=== PATIENT | female | born 1935 | race Caucasian/White ===

== ENCOUNTER 2017-08-29 09:48 | Outpatient (CLI) | payer MEDICARE ==
--- NOTE | 2017-08-29 12:02 | ULT ---
BILATERAL CAROTID DUPLEX ULTRASOUND: DATE: 08/29/17 HISTORY: Bilateral carotid bruits. TECHNIQUE: Chiang scale ultrasound with color flow and spectral Doppler imaging of the extracranial carotid artery systems performed. FINDINGS: There is plaque formation on either side. The peak systolic velocity in the right ICA measures 58 cm/second with an end-diastolic velocity of 1 1 cm/second and a systolic ratio of 0.78. The peak systolic velocity in the left ICA measures 86 cm/second with an end-diastolic velocity of 11 cm/second and a systolic ratio of 1.05. Flow in both vertebral arteries remains antegrade. IMPRESSION: No evidence of hemodynamically significant stenosis. POS: [facility]
== END 2017-08-29 09:49 | disposition home or self-care (01) ==
LOC: ULT 09:48
PROVIDERS: ATTEND General Practice
DX: R09.89 Other specified symptoms and signs involving the circulatory and respiratory systems (principal)
CPT/HCPCS: 93880

== ENCOUNTER 2017-12-30 11:45 | Inpatient (IN) | payer MEDICARE ==
[2017-12-30 12:16] LABS: #Eosinphils 0.1 thou/uL (0.0-0.7); #Lymphocytes 1.1 thou/uL (1.20-3.40); #Monocytes 0.5 thou/uL (0.11-0.59); #Neutrophils 11.5 thou/uL (1.40-6.50); %Basophils 0.2 % (0.0-1.0); %Eosinophils 0.9 % (0.0-10.0); %Lymphocytes 8.6 % (21.0-51.0); %Neutrophils 86.3 % (42.0-75.0); Hemoglobin 14.6 g/dL (12.0-16.0); Mean Corpuscular HGB CONC 33.2 g/dL (32.0-36.0); Mean Corpuscular Hemoglobin 31.6 pg (27.0-31.0); Mean Platelet Volume 8.2 fL (7.4-10.4); Platelet Count 260 thou/uL (130-400); RBC Distribution Width 11.2 % (11.5-14.5); Red Blood Cell (RBC) Count 4.61 mill/uL (4.20-5.40); White Blood Cell (WBC) Count 13.3 thou/uL (4.8-10.8)
[2017-12-30 12:25] LABS: INR-International Normal Ratio 1.1
[2017-12-30 12:35] LABS: ALT (SGPT) 23 U/L (8-55); AST (SGOT) 26 U/L (5-34); Albumin 3.9 g/dL (3.4-4.8); Alkaline Phosphatase 76 U/L (40-150); Anion Gap 12 mmol/L (10-20); BUN (Urea Nitrogen) 27 mg/dL (9.8-20.1); Bilirubin, Total 0.8 mg/dL (0.2-1.2); Calc. Creatinine Clearance 0 mL/min (70-130); Calcium 9.6 mg/dL (7.8-10.44); Carbon Dioxide 26 mmol/L (23-31); Chloride 105 mmol/L (98-107); Estimated GFR-MDRD 44; Glucose 191 mg/dL (83-110); Potassium 4.4 mmol/L (3.5-5.1); Protein, Total 6.9 g/dL (6.0-8.3); Sodium 139 mmol/L (136-145)
--- NOTE | 2017-12-30 13:07 | RAD ---
RIGHT HIP 2 VIEWS: Date: 12/30/17 PROVIDED CLINICAL HISTORY: Pain. FINDINGS: Comminuted intertrochanteric right proximal femoral fracture with coxa vara. Nondisplaced superior pu bic ramus fracture. Vascular calcification. Right hip joint space is preserved. IMPRESSION: Displaced and angulated intertrochanteric right proximal femoral fracture. Nondisplaced superior pubi c ramus fracture. POS: [facility]
--- NOTE | 2017-12-30 13:08 | RAD ---
PELVIC RADIOGRAPH: Date: 12/30/17 PROVIDED CLINICAL HISTORY: Pain. FINDINGS: Comminuted, displaced intertrochanteric right proximal femoral fracture with accentuation of coxa jose a. There is also a nondisplaced fracture involving the right superior pubic ramus. No additional frac ture is evident. Alignment appears otherwise anatomic. IMPRESSION: Right proximal femoral and superior pubic ramus fractures as above. POS: [facility]
--- NOTE | 2017-12-30 13:19 | RAD ---
PORTABLE CHEST: Date: 12/30/17 PROVIDED CLINICAL HISTORY: Pain. FINDINGS: Cardiac and mediastinal silhouette is within normal limits. Vascular calcification involves the aorti c arch. No focal consolidation, pleural fluid, or pneumothorax apparent. IMPRESSION: No evidence for an acute cardiopulmonary process. POS: [facility]
--- NOTE | 2017-12-30 14:21 | HP ---
DATE OF ADMISSION: 12/30/2017 REQUESTING PHYSICIAN: Dr. Kelsey. ATTENDING SURGEON: Dr. Brooke. CONSULTATIONS: Orthopedics, Dr. Becerril. 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 She had immediate pain and someone helped at which time EMS brought her to the emergency department where she underwent evaluation and examination and was noted to have a right intertrochanteric hip fr acture and pubic ramus fracture, at which time we were asked to admit the patient and obtain orthoped ic consultation. The patient denied loss of consciousness hitting her head, neck or chest pain. ALLERGIES: CODEINE AND MORPHINE. Patient states that CODEINE gives her a rash and MORPHINE "makes h er crazy." MEDICATIONS: Amitriptyline, amlodipine, atorvastatin, gabapentin, Lantus, metoprolol. PAST MEDICAL HISTORY: Type 2 diabetes, hypercholesterolemia, hypertension, COPD, and macular degener ation. PAST SURGICAL HISTORY: Ophthalmic surgery, back surgery, laser diskectomy and a right knee replaceme nt. SOCIAL HISTORY: Patient currently lives at home with family. She is a former tobacco user. She sta madeline she quit greater than 20 years ago. She denies drug or alcohol use. REVIEW OF SYSTEMS: Ten point review of systems negative otherwise stated. FAMILY MEDICAL HISTORY: Noncontributory. PHYSICAL EXAMINATION: VITAL SIGNS: Blood pressure 143/57, heart rate 75, respirations 18, oxygen saturation is 94% on 2 li ters via nasal cannula and temperature is 98.2. GENERAL: The patient is resting comfortably in the ER bed. She is awake, alert, and oriented x3. G lasgow coma scale is 15. HEENT: Head is normocephalic, atraumatic. Eyes: Extraocular motion intact. PERRLA bilaterally. B y history, patient is "legally blind" but she had no problems with my exam. Nose is atraumatic witho ut discharge. Ears are atraumatic without discharge. Oropharynx is clear. NECK: Nontender. Trachea is midline. No tracheal deviation. LUNGS: Clear to auscultation with good inspiratory and expiratory effort. HEART: Regular rate and rhythm. ABDOMEN: Soft, flat, nontender with active bowel sounds. Pelvis is stable with tenderness to right hip consistent with her fracture. EXTREMITIES: Neurovascularly intact x4. Right lower extremity is somewhat shortened and externally rotated. BACK: By history is atraumatic and nontender. LABORATORY DATA: White blood cell count 13.3, hemoglobin 14.6, hematocrit 43.8, platelets 260. Sodi um 139, potassium 4.4, chloride 105, CO2 26, BUN 27, creatinine 1.18, glucose 191. LFTs are unremark able. PT 14, INR 1.1. RADIOGRAPHIC FINDINGS: AP chest x-ray showed no evidence of acute cardiopulmonary process. AP pelvi s shows right proximal femoral and superior pubic rami fractures. Radiographs of the right hip showe d displaced and angulated intertrochanteric right proximal femur fracture. ASSESSMENT: 1. Status post injury by livestock. 2. Right hip fracture. 3. Right pubic rami fracture. 4. Acute pain secondary to trauma. 5. History of chronic obstructive pulmonary disease. 6. History of type 2 diabetes. 7. History of hypertension. PLAN: Will be to admit the patient to the surgical floor. After discussion with Dr. Becerril, he woul d like to take the patient to the operating room today for procedure. The patient and the family are in agreement with this. The patient will also have pain control, pulmonary toilet, gastritis, mecha nical VTE prophylaxis. The evaluation, examination, laboratory and radiographic findings will be dis cussed with Dr. Brooke after this dictation.
[2017-12-30] MEDS ORDERED: PROPOFOL 200 MG/20 ML VIAL ONE (14:50)
[2017-12-30] MEDS ORDERED: Glycopyrrolate 0.2 MG/ML 5 ML SYRINGE ONE (14:50)
[2017-12-30] MEDS ORDERED: Succinylcholine Chloride 20 MG/ML 10 ml SYRINGE FS ONE (14:50)
[2017-12-30] MEDS ORDERED: ePHEDrine/0.9% NaCl/PF SYRINGE 50 mg/10 ml ONE (14:50)
[2017-12-30] MEDS ORDERED: CEFAZOLIN/Water 2 GM/20 ML SYRINGE ONE (14:57)
[2017-12-30] MEDS ORDERED: CEFAZOLIN 1 GM VIAL ONE (14:57)
--- NOTE | 2017-12-30 15:21 | CON ---
DATE OF CONSULTATION: 12/31/2017 PRINCIPAL DIAGNOSIS: Right subtrochanteric fracture with intertrochanteric extension and right pubic ramus fracture. HISTORY OF PRESENT ILLNESS: This is a very pleasant woman who is 82 years of age. She lives formerly [facility] and was injured by her she was knocked about 10 feet in the air. PAST MEDICAL HISTORY: Positive for diabetes and hypertension. ALLERGIES TO MEDICATIONS: MORPHINE causes mental status changes and CODEINE causes itching. SOCIAL HISTORY: She does not smoke. She does not drink. She has good family support, but lives [facility]. She was previously a community ambulator. REVIEW OF SYSTEMS: Negative for loss of consciousness, nausea, vomiting, headache. PHYSICAL EXAMINATION: GENERAL: Shows a pleasant woman in no distress. EXTREMITIES: Right hip is shortened. External rotation is 1+ DP and PT pulse. Intact sensation dis tally. Radiographs show comminuted fracture, intertrochanteric, subtrochanteric region with a nondisplaced i nferior pubic ramus fracture and probable inferior pubic rami fracture as well. PLAN: Intramedullary fixation. She and her family understand risk of infection, stiffness, nerve or blood vessel damage, blood clots, transfusion, and and would lie to proceed with surgery.
[2017-12-30] MEDS ORDERED: Promethazine HCl 25 MG/ML VIAL IM PRN (16:29)
[2017-12-30] MEDS ORDERED: Ondansetron HCl/PF 4 MG/2 ML Vial IVP PRN ×3 (16:29→17:17)
[2017-12-30] MEDS ORDERED: Promethazine HCl 25 MG/ML VIAL SLOW IVP PRN (16:29)
--- NOTE | 2017-12-30 16:35 | RAD ---
RIGHT FEMUR TWO VIEW 12/30/17 HISTORY: ORIF. COMPARISON: None. FINDINGS: Multiple spot fluoroscopic images were sent from the Operating Room. IMPRESSION: Fluoroscopy for surgical purposes. POS: [facility]
[2017-12-30] MEDS ORDERED: Milk Of Magnesia 30 ML UDCUP PO PRN (17:17)
[2017-12-30] MEDS ORDERED: Cepastat Lozenges 1 LOZ PO PRN (17:17)
[2017-12-30] MEDS ORDERED: Dextrose 50% Abboject 50 ML SYRINGE SLOW IVP PRN ×2 (17:17)
[2017-12-30] MEDS ORDERED: Bisacodyl 10 MG SUPP PR PRN (17:17)
[2017-12-30] MEDS ORDERED: Dextrose 5% in Water 1,000 ML IV PRN (17:17)
[2017-12-30] MEDS ORDERED: Fleet Enema 133 ML BOT PR PRN (17:17)
[2017-12-30] MEDS ORDERED: Ondansetron ODT 4 MG TAB PO PRN ×2 (17:17)
[2017-12-30] MEDS: Sodium Chloride 0.9% 1,000 ML IV SCH ×2 (17:40→23:32)
[2017-12-30] MEDS: Acetaminophen 1,000 MG in Premix Bag 1 BAG IVPB SCH ×2 (17:51→23:31)
[2017-12-30] MEDS: Ketorolac Tromethamine 30 MG/ML VIAL IVP SCH ×2 (17:51→23:31)
[2017-12-30] MEDS: Insulin Regular 300 UNITS/3 ML VIAL SC PRN ×2 (18:31→20:51)
[2017-12-30] MEDS: Fentanyl 100 MCG/2 ML VIAL SLOW IVP PRN (19:58)
[2017-12-30] MEDS: Ferrous Gluconate 324 MG TAB PO SCH (20:52)
[2017-12-30] MEDS: Senokot S 8.6-50 MG TAB PO SCH (20:52)
[2017-12-30] MEDS: Famotidine 20 MG TAB PO SCH (20:52)
[2017-12-30] MEDS: CEFAZOLIN/Water 2 GM/20 ML SYRINGE SLOW IVP SCH (23:31)
[2017-12-31 05:19] LABS: Anion Gap 12 mmol/L (10-20); BUN (Urea Nitrogen) 23 mg/dL (9.8-20.1); Calc. Creatinine Clearance 40 mL/min (70-130); Carbon Dioxide 24 mmol/L (23-31); Chloride 106 mmol/L (98-107); Estimated GFR-MDRD 54; Glucose 134 mg/dL (83-110); Potassium 4.8 mmol/L (3.5-5.1); Sodium 137 mmol/L (136-145)
[2017-12-31] MEDS: Acetaminophen 1,000 MG in Premix Bag 1 BAG IVPB SCH (05:52)
[2017-12-31] MEDS: Ketorolac Tromethamine 30 MG/ML VIAL IVP SCH ×3 (05:52→17:53)
[2017-12-31 06:18] LABS: #Eosinphils 0.4 thou/uL (0.0-0.7); #Lymphocytes 1.4 thou/uL (1.20-3.40); #Monocytes 0.3 thou/uL (0.11-0.59); #Neutrophils 4.6 thou/uL (1.40-6.50); %Basophils 0.4 % (0.0-1.0); %Eosinophils 6.7 % (0.0-10.0); %Lymphocytes 20.3 % (21.0-51.0); %Monocytes 4.7 % (0.0-10.0); %Neutrophils 67.9 % (42.0-75.0); Hemoglobin 9.3 g/dL (12.0-16.0); Mean Corpuscular HGB CONC 32.9 g/dL (32.0-36.0); Mean Corpuscular Hemoglobin 31.6 pg (27.0-31.0); Mean Platelet Volume 8.3 fL (7.4-10.4); Platelet Count 141 thou/uL (130-400); RBC Distribution Width 11.2 % (11.5-14.5); Red Blood Cell (RBC) Count 2.96 mill/uL (4.20-5.40); White Blood Cell (WBC) Count 6.8 thou/uL (4.8-10.8)
[2017-12-31] MEDS: Ferrous Gluconate 324 MG TAB PO SCH ×2 (09:02→21:04)
[2017-12-31] MEDS: Multivitamin W/ Minerals 1 TAB PO SCH (09:02)
[2017-12-31] MEDS: Polyethylene Glycol 3350 17 GM Packet PO SCH (09:02)
[2017-12-31] MEDS: Senokot S 8.6-50 MG TAB PO SCH ×2 (09:02→21:04)
[2017-12-31] MEDS: Famotidine 20 MG TAB PO SCH (09:02)
[2017-12-31] MEDS: CEFAZOLIN/Water 2 GM/20 ML SYRINGE SLOW IVP SCH (09:02)
--- NOTE | 2017-12-31 09:05 | PDOC.EVN ---
Event Note - Event Note Event Note: Patient seen on rounds. Agree with Jose Luis Arredondo assessment and plan.
[2017-12-31] MEDS: Fentanyl 100 MCG/2 ML VIAL SLOW IVP PRN (09:08)
[2017-12-31] MEDS ORDERED: Cyclobenzaprine 10 MG TAB PO PRN (11:43)
[2017-12-31] MEDS: Acetaminophen 500 MG TAB PO SCH ×3 (12:05→23:44)
[2017-12-31] MEDS: Ibuprofen 600 MG TAB PO SCH ×2 (12:05→21:03)
[2017-12-31] MEDS: Insulin Regular 300 UNITS/3 ML VIAL SC PRN ×3 (12:06→21:04)
--- NOTE | 2017-12-31 12:26 | PRG ---
DATE OF SERVICE: 12/31/2017 SUBJECTIVE: The patient is postop day #1, hospital day #2, status post having livestock causin g her to have a right proximal femur fracture. The patient underwent IM nailing of the same yesterda y. Overnight had no issues. This morning, states that her pain is controlled. She is tolerating a diet and she is awaiting her first therapy session with physical therapy. OBJECTIVE: VITAL SIGNS: Temperature is 98.2, heart rate 76, blood pressure 110/63, respirations 16, oxygen satu ration is 95% on 2 liters via nasal cannula. GENERAL: The patient is resting comfortably in bed. She is awake, alert, oriented x3. Eduardo coma scale is 15. HEENT: Unremarkable. LUNGS: Clear to auscultation with good inspiratory and expiratory effort. HEART: Regular rate and rhythm. ABDOMEN: Soft, flat, nontender with active bowel sounds. EXTREMITIES: Neurovascularly intact x4. Postop dressing is clean, dry, and intact. LABORATORY DATA: White blood cell count 6.8, hemoglobin 9.3, hematocrit 28.4, platelets 141. Sodium 137, potassium 4.8, chloride 106, CO2 24, BUN 23, creatinine 0.98, glucose 134. There are no radiog raphs to review this morning. ASSESSMENT AND PLAN: 1. Status post injury due to livestock. 2. Status post open reduction internal fixation of right proximal femur fracture. 3. Right superior pubic rami fracture. PLAN: Will be to continue supportive care, physical and occupational therapy and discussed placement tomorrow.
[2017-12-31] MEDS: traMADol HCl 50 MG TAB PO PRN (14:20)
[2017-12-31] MEDS: Gabapentin 100 MG CAP PO PRN (14:20)
[2017-12-31] MEDS ORDERED: Amitriptyline HCl 25 MG TAB PO SCH (21:00)
[2017-12-31] MEDS ORDERED: Atorvastatin Calcium 40 MG TAB PO SCH (21:00)
[2018-01-01] MEDS: Ibuprofen 600 MG TAB PO SCH ×2 (04:10→11:35)
[2018-01-01] MEDS: Acetaminophen 500 MG TAB PO SCH ×3 (05:24→17:25)
[2018-01-01] MEDS: Insulin Regular 300 UNITS/3 ML VIAL SC PRN ×2 (05:30→11:34)
[2018-01-01 06:27] LABS: Anion Gap 11 mmol/L (10-20); BUN (Urea Nitrogen) 20 mg/dL (9.8-20.1); Calc. Creatinine Clearance 41 mL/min (70-130); Calcium 8.4 mg/dL (7.8-10.44); Carbon Dioxide 26 mmol/L (23-31); Chloride 105 mmol/L (98-107); Estimated GFR-MDRD 56; Glucose 209 mg/dL (83-110); Magnesium 1.8 mg/dL (1.6-2.6); Phosphorus 2.9 mg/dL (2.3-4.7); Potassium 4.6 mmol/L (3.5-5.1); Sodium 137 mmol/L (136-145)
[2018-01-01 06:53] LABS: Mean Corpuscular Hemoglobin 31.7 pg (27.0-31.0); Mean Corpuscular Volume 96.1 fL (78.0-98.0); Mean Platelet Volume 8.6 fL (7.4-10.4); Platelet Count 111 thou/uL (130-400); RBC Distribution Width 11.3 % (11.5-14.5); Red Blood Cell (RBC) Count 2.53 mill/uL (4.20-5.40); White Blood Cell (WBC) Count 5.8 thou/uL (4.8-10.8)
[2018-01-01] MEDS: Polyethylene Glycol 3350 17 GM Packet PO SCH (09:00)
[2018-01-01] MEDS ORDERED: Amlodipine 10 MG TAB PO SCH (09:00)
[2018-01-01] MEDS ORDERED: Famotidine 20 MG TAB PO SCH (09:00)
[2018-01-01] MEDS ORDERED: Ascorbic Acid 500 mg Chewable Tablet PO SCH (09:00)
[2018-01-01] MEDS: traMADol HCl 50 MG TAB PO PRN ×2 (09:01→17:26)
[2018-01-01] MEDS: Senokot S 8.6-50 MG TAB PO SCH (09:01)
[2018-01-01] MEDS: Gabapentin 100 MG CAP PO PRN (09:01)
[2018-01-01] MEDS: Multivitamin W/ Minerals 1 TAB PO SCH (09:02)
[2018-01-01] MEDS: traMADol HCl 50 MG TAB PO SCH ×2 (09:25→14:58)
[2018-01-01 10:43] VITALS: BMI 28.8
--- NOTE | 2018-01-01 13:47 | OP ---
PREOPERATIVE DIAGNOSIS: Subtrochanteric/intertrochanteric fracture, right femur. POSTOPERATIVE DIAGNOSIS: Subtrochanteric/intertrochanteric fracture, right femur. SURGEON: Donald Becerril M.D. ANESTHESIA: General. BLOOD LOSS: About 200 mL SPECIMENS: None. DRAINS: None. COMPLICATIONS: None. TITLE OF PROCEDURE: Open reduction internal fixation with long trochanteric femoral nail anatomic by [employer]. PROCEDURE IN DETAIL: After informed consent was obtained in the preoperative holding area, the patie nt was taken to the operative suite and positioned appropriately on the fracture table. Spinal anest hetic was placed and the right hip was then prepped and draped in the usual sterile fashion. Prior t o incision, a time-out was called and all members of surgical team agreed upon site, surgeon, and pat ient. Patient also received preoperative antibiotics prior to incision. Once this was confirmed, fl uoroscopy was brought into the field and we evaluated the reduction and the fracture table was used w ith inline longitudinal traction and adduction to appropriately reduce the fracture. Once we were clay ppy with near anatomic reduction, we then made a linear incision 2 fingerbreadths above the greater t rochanter noted by palpation. The subcutaneous layers were opened sharply. I encountered the IT ban d. This was incised sharply and blunt dissection using a finger was then carried down to the trochant er which was noted by palpation. We used a guidepin to enter the posterior 2/[address] ter. Guidepin was then used to enter the canal, over reamed with a 15 mm entry reamer. Once this wa s established, the prosthesis was then slid down into place and malleted gently to the adequate heigh t and noted with fluoroscopy. The lateral entry outrigger was then placed and we used a 2-incision t echnique to establish the hip screw fixation point. A guidepin was then placed into the femoral head using the outrigger. The measurement was taken. The appropriate size was chosen. Lateral entry bro aching reamer was then used using the outrigger and the final screw was then placed. The anti-rotati onal gate was then closed and the distal interlocking screw was placed for final construct which appe ared near anatomic on radiographs. Both incisions (2-incision technique) were copiously irrigated wit h normal saline. Primary closure was accomplished with #1 Vicryl at the IT band. Subcutaneous layer was closed with 2-0 Vicryl, and stainless steel cayla were used to reapproximate the skin. Final x-rays demonstrated near anatomic reduction, good hardware fixation. The procedure was terminated wi thout any complications. The patient was taken recovery room in stable condition.
[2018-01-01 16:07] VITALS: BP 134/66; TEMP 97.9
[2018-01-01] MEDS ORDERED: Insulin Regular 300 UNITS/3 ML VIAL SC PRN (16:21)
[2018-01-01] MEDS ORDERED: Ferrous Sulfate 325 MG TAB PO SCH (17:00)
[2018-01-01] MEDS ORDERED: Insulin Glargine 30 UNITS in Syringe 0 ML SC SCH (21:00)
--- NOTE | 2018-01-02 07:05 | DIS-2 ---
DATE OF ADMISSION: 12/30/2017 DATE OF DISCHARGE: 01/01/2018 ADMITTING TEAM: Trauma, Dr. Jose Luis Arredondo, Dr. Lopez. DISCHARGING TEAM: Trauma, Dr. Vann. Dr. Enamorado PGY-1. CONSULTATIONS: Orthopedics, Dr. Becerril. PROCEDURES: AP pelvic showing right proximal femoral and superior pubic rami. AP chest portable no evidence of acute cardiopulmonary process. Right hip two view displaced and angulated intertrochante asim right proximal femoral fracture. Nondisplaced superior pubic ramus fracture, open reduction and internal fixation with long trochanteric femoral nail anatomic by synthesis. PRIMARY DIAGNOSES: Right hip fracture and right pubic ramus fracture. SECONDARY DIAGNOSES: Acute pain secondary to trauma, history of chronic obstructive pulmonary diseas e, history of type 2 diabetes, history of hypertension. DISCHARGE MEDICATIONS: 1. Tylenol 1 gram q.6 hours. 1. Amitriptyline 25 mg p.o. at bedtime. 2. Amlodipine 10 mg p.o. daily. 3. Vitamin C 100 mg p.o. b.i.d. 4. Aspirin 81 mg p.o. daily. 5. Lipitor 40 mg p.o. at bedtime. 6. Cyclobenzaprine 5 mg p.o. t.i.d. p.r.n. muscle spasms. 7. Pepcid 20 mg p.o. daily. 8. Ferrous sulfate 25 mg p.o. b.i.d. 9. Gabapentin 100 mg p.o. q.6 hours. 10. Ibuprofen 600 mg p.o. q.8 hours. 11. Levemir 30 units at bedtime 12. DuoNeb q.6 hours scheduled. 13. Multivitamin. 14. MiraLax 17 grams p.o. daily. 15. Senokot 2 tabs p.o. b.i.d. 16. Tramadol 50 mg p.o. at bedtime p.r.n. pain. 17. Metoprolol 100 mg p.o. b.i.d. DISCONTINUED MEDICATIONS: None. HISTORY OF PRESENT ILLNESS/HOSPITAL COURSE: This is an 82-year-old female who was working with became behind her left through the ear in which case, she landed on her right hip. Patient had imme diate pain and was brought to the ER where she was diagnosed with a right intertrochanteric hip fract ure. Patient's pain was controlled and patient went back for ORIF of that right hip as mentioned abo ve. Patient tolerated the procedure well and worked with physical therapy and occupational therapy meliton villa she was here. Today, patient only walk five steps with PT and had difficulty times transferring from [id number] with a walker. Patient wanted to leave home. We encouraged her to go to rehab fo r 10 days, which she was agreeable to. Vital signs at the time of discharge 97.9, pulse is 95, respi rations 16, pulse ox 92 on 2 liters nasal cannula, blood pressure 134/66. LABORATORY DATA: Today WBC 5.8, hemoglobin 8.0, hematocrit 24.3, MCV 96.1, platelet count 111. Sod ium 137, potassium 4.6, chloride 105, bicarb 26, BUN 20, creatinine 0.95, glucose 209. DISPOSITION: Stable. DISCHARGE INSTRUCTIONS: 1. Location: Inpatient rehabilitation. 2. Diet: Heart healthy, carb consistent, soft. 3. Activity: Full weightbearing bilaterally with assistance, PT recommendations. 4. Follow up with Dr. Becerril in 1-2 weeks and PCP in 1-[address] Vann saw this patient. We discussed the treatment plan.
--- NOTE | 2018-01-06 11:53 | EKG ---
Test Reason : Blood Pressure : / mmHG Vent. Rate : 071 BPM Atrial Rate : 071 BPM P-R Int : 152 ms QRS Dur : 124 ms QT Int : 452 ms P-R-T Axes : 069 -33 047 degrees QTc Int : 491 ms Normal sinus rhythm Left axis deviation Possible Anteroseptal infarct , age undetermined Abnormal ECG Confirmed by JOSE TYSON DO ([id number]), general expeditor JAYESH PERALES ([id number]) on 01/06/2018 11:53:08 AM Referred By: Confirmed By:JOSE TYSON DO
== END 2018-01-01 19:20 | disposition home or self-care (01) | DRG 956 ==
LOC: ERS 11:45 → SDC 14:54 → SJJU 15:15
PROVIDERS: ADMIT Surgery; ATTEND Surgery
PROC: 0QS604Z Reposition Right Upper Femur with Internal Fixation Device, Open Approach (ICD-10-PCS; principal; 2017-12-30)
DX: S72.091A Other fracture of head and neck of right femur, initial encounter for closed fracture (principal); S32.501A Unspecified fracture of right pubis, initial encounter for closed fracture; G89.11 Acute pain due to trauma; J44.9 Chronic obstructive pulmonary disease, unspecified; E11.9 Type 2 diabetes mellitus without complications; I10 Essential (primary) hypertension; Z79.82 Long term (current) use of aspirin; Z79.51 Long term (current) use of inhaled steroids; Z88.5 Allergy status to narcotic agent; E78.00 Pure hypercholesterolemia, unspecified; H35.30 Unspecified macular degeneration; Z96.651 Presence of right artificial knee joint; Z87.891 Personal history of nicotine dependence
CPT/HCPCS: 36415; 36416; 71045; 72170; 76001; 80048; 80053; 83735; 84100; 85025; 85027; 85610; 86850; 86900; 86901; 93005; 94640; C1713; C1769; G0390; G8978-GP-CK; G8979-GP-CJ; G8987-GO-CL; G8988-GO-CJ; J0131; J0690; J1815; J1885; J2704; J3010; J7620

== ENCOUNTER 2018-07-25 09:21 | Day surgery (SDC) | payer MEDICARE ==
[2018-07-24 11:16] VITALS: BMI 29.2
--- NOTE | 2018-07-24 15:28 | HP ---
HISTORY OF PRESENT ILLNESS: Ms. Swift is a very pleasant 83-year-old woman, known to us for distant L4-L5 decompression in 2017, who returns now for several months of severe left lower extremity L4 and L5 pains. She has no pain in the right lower extremity resulting in a right femur fracture requiring surgery with Dr. Becerril. She has sufficiently recovered from this, but her pain persists. MRI of disk reveals new large central disk herniation, eccentric to the left L4-L5 that likely explains all of her symptoms. This causes severe lateral recess and foraminal stenosis. She conservatively given failure in the past. PAST MEDICAL HISTORY: Significant for hypertension and diabetes. PAST SURGICAL HISTORY: Hysterectomy, knee replacement, breast lumpectomy, and lumbar decompression. CURRENT MEDICATIONS: 1. Amitriptyline. 2. Amlodipine. 3. Simvastatin. 4. Hydrochlorothiazide. 5. Glimepiride. 6. Lisinopril. 7. Furosemide. ALLERGIES: TRAMADOL. PHYSICAL EXAMINATION: The patient is alert and oriented x3. Gait is severely antalgic. Lower extremity motor exam is normal. ASSESSMENT: Lumbar disk herniation with radiculopathy. PLAN: Dr. Solis met with the patient, reviewed imaging, and advocated for left L4 diskectomy and foraminotomy. He explained to the patient the risks, benefits, and alternatives of the procedure. The patient expressed understanding and elected to move forward surgery as discussed. I do believe the patient is mentally competent capable of making medical decisions for herself. We will move forward with surgery as planned. Job ID: [id number]
[2018-07-25] MEDS ORDERED: Thrombin 5000 UNITS/5 ML VIAL ONE (09:52)
[2018-07-25] MEDS ORDERED: Bupivacaine HCl 0.5%/Epinephrine 1:200,000/PF 30 ml Vial ONE (09:52)
[2018-07-25] MEDS ORDERED: Sodium Chloride 0.9% 10 ML ONE (09:52)
[2018-07-25] MEDS ORDERED: Fentanyl 100 MCG/2 ML VIAL ONE (09:55)
[2018-07-25] MEDS ORDERED: Lidocaine 2% Jelly 5 ML TUBE ONE (10:13)
[2018-07-25 10:35] LABS: #Eosinphils 0.2 thou/uL (0.0-0.7); #Lymphocytes 1.9 thou/uL (1.20-3.40); #Monocytes 0.3 thou/uL (0.11-0.59); #Neutrophils 4.5 thou/uL (1.40-6.50); %Basophils 0.5 % (0.0-1.0); %Eosinophils 2.7 % (0.0-10.0); %Lymphocytes 27.5 % (21.0-51.0); %Monocytes 4.7 % (0.0-10.0); %Neutrophils 64.5 % (42.0-75.0); Hemoglobin 15.3 g/dL (12.0-16.0); Mean Corpuscular HGB CONC 33.9 g/dL (32.0-36.0); Mean Corpuscular Hemoglobin 31.1 pg (27.0-31.0); Mean Corpuscular Volume 91.9 fL (78.0-98.0); Mean Platelet Volume 7.7 fL (7.4-10.4); Platelet Count 245 thou/uL (130-400); RBC Distribution Width 11.8 % (11.5-14.5); Red Blood Cell (RBC) Count 4.91 mill/uL (4.20-5.40)
[2018-07-25 10:48] LABS: Anion Gap 13 mmol/L (10-20); BUN (Urea Nitrogen) 22 mg/dL (9.8-20.1); Calc. Creatinine Clearance 52 mL/min (70-130); Calcium 10.1 mg/dL (7.8-10.44); Carbon Dioxide 26 mmol/L (23-31); Chloride 105 mmol/L (98-107); Estimated GFR-MDRD 54; Glucose 140 mg/dL (83-110); Potassium 4.4 mmol/L (3.5-5.1); Sodium 140 mmol/L (136-145)
--- NOTE | 2018-07-25 12:22 | OP ---
DATE OF PROCEDURE: 07/25/2018 MANAGER MEDICARE: Epi Beck PA-C INDICATION: Pain. DIAGNOSIS: Lumbar radiculopathy. PROCEDURES PERFORMED: Reoperation left L4 diskectomy, medial facetectomy, and decompression. ANESTHESIA: General. DESCRIPTION OF PROCEDURE: The patient was brought into the operating room and placed under general anesthesia. She was flipped from the supine to prone position on operating room table. A linear incision was planned over the area of her previous surgical site. After prepping and draping and after preoperative pause, the incision was created. The soft tissues were swept left of midline. A self-retaining retractor was placed in the wound for optimal exposure. After confirming the appropriate level, C-arm fluoroscopy identified bone margins consistent with prior laminectomy defect. Using a high-speed cutting drill bit as well as 2, 3, and 4 mm Kerrisons, laminectomy was extended laterally to encompass the medial half of the facet joint. The descending L5 and exiting L4 nerve roots were identified. A large protuberant disk mass was identified and was carefully removed to decompress both the exiting nerve as well as the descending nerve. The wound was then irrigated. Hemostasis was maintained throughout. The wound was then closed in anatomic layers and a pressure dressing was applied. There were no known procedural complications. Job ID: [id number]
[2018-07-25] MEDS ORDERED: Rocuronium Bromide 10 MG/ML (10ML VIAL) ONE (14:42)
[2018-07-25] MEDS ORDERED: Lidocaine 1% PF 5 ML VIAL ONE (14:42)
[2018-07-25] MEDS ORDERED: PHENYLEPHRINE-NS 100 MCG/ML 10 ML SYRINGE ONE (14:42)
[2018-07-25] MEDS ORDERED: Ondansetron PF 4 MG/2 ML Vial ONE (14:42)
[2018-07-25] MEDS ORDERED: ePHEDrine 50 MG/ML VIAL ONE (14:42)
[2018-07-25] MEDS ORDERED: PROPOFOL 200 MG/20 ML VIAL ONE (14:42)
[2018-07-25] MEDS ORDERED: Glycopyrrolate 0.2 MG/ML 5 ML SYRINGE ONE (14:42)
== END 2018-07-25 16:12 | disposition home or self-care (01) ==
LOC: SDC 09:21
PROVIDERS: ATTEND Neurological Surgery
PROC: 0SB20ZZ Excision of Lumbar Vertebral Disc, Open Approach (ICD-10-PCS; principal; 2018-07-25)
DX: M51.16 Intervertebral disc disorders with radiculopathy, lumbar region (principal); I10 Essential (primary) hypertension; E11.9 Type 2 diabetes mellitus without complications; Z90.710 Acquired absence of both cervix and uterus; Z96.659 Presence of unspecified artificial knee joint; Z88.5 Allergy status to narcotic agent; Z79.4 Long term (current) use of insulin; Z79.899 Other long term (current) drug therapy; Z98.890 Other specified postprocedural states
CPT/HCPCS: 76000; 80048; 85025; J0670; J2001; J2405; J2704; J3010; J3490